=== PATIENT | male | born 1955 | race Caucasian/White ===

== ENCOUNTER 2018-06-10 09:34 | Inpatient (IN) | payer OTHER ==
--- NOTE | 2018-06-09 13:54 | PDGENHP ---
History & Physical Chief Complaint: Left knee prosthetic joint mechanical failure History of Present Illness: Rosendo is a pleasant 62 year old male who presented to our office with left knee pain s/p left TKA 17 years aog. He was found to have mechanical failure of the joint. He failed conservative treatment and has chosen to undergo surgical intervention Pertinent Past, Social, Family History: PMH: HTN. SH: LTKA 17 years ago. Medications: Lisinopril, mirtazipine, ritalin, albuterol, ibuprofen. FH: non- contributory. Social History: former smoker Relevant Physical Exam: Examination of the left knee demonstrates varus alignment. He has a moderate knee joint effusion. Mild laxity noted of the MCL. Full knee extension and 125 of knee flexion. There is retropatellar clicking with active knee extension. His strength is 4+ to 5 out of 5. He is neurovascular intact with intact skin. He has quad atrophy compared to the opposite side. Cardiorespiratory Assessment: RRR, CTAB
[~2018-06-10 09:34] MED LIST: BACITRACIN 50,000 UNITS/10 ML SYR IRR ONE; BUPIVACAINE/EPI 0.5% 30 ML SDV ONE; POLYMYXIN B SULFATE 500,000 UNIT/10 ML SYR IRR ONE; ROPIVACAINE 0.2% 80 MG, EPINEPHrine 0.2 MG, KETOROLAC TROMETHAMINE 30 MG, morphINE 10 M... IU ONE; TRANEXAMIC ACID 3,000 MG in NS (SYRINGE) 50 ML IRR ONE; TRANEXAMIC ACID 3,000 MG/50 ML BAG IRR ONE; ceFAZolin 2 GM/DEXTROSE 100 ML IV ONE
[2018-06-10] MEDS ORDERED: LR 1,000 ML IV ONE (09:51)
[2018-06-10] MEDS ORDERED: LIDOCAINE 1% 2 ML INJ ID PRN (09:51)
[2018-06-10] MEDS ORDERED: PROPOFOL/EMULSION 500 MG/50 ML BOTTLE IV ONE ×4 (11:17→15:52)
[2018-06-10] MEDS ORDERED: LIDOCAINE 2% 5 ML SDV ONE (11:19)
[2018-06-10] MEDS ORDERED: BUPIVACAINE/DEXTROSE 7.5MG/ML 2 ML SPINAL AMP SP ONE (11:20)
--- NOTE | 2018-06-10 11:25 | PDANEPAE ---
ANE History of Present Illness left knee revision arthroplasty ANE Past Medical History - Cardiovascular History Hx Hypertension: Yes Hx Arrhythmias: No Hx Chest Pain: No Hx Coronary Artery / Peripheral Vascular Disease: No Hx CHF / Valvular Disease: No Hx Palpitations: No Cardiovascular History Comment: RHEUMATIC FEVER AGE 1958 - Pulmonary History Hx COPD: No Hx Asthma/Reactive Airway Disease: Yes Hx Recent Upper Respiratory Infection: No Hx Oxygen in Use at Home: No Hx Sleep Apnea: No Sleep Apnea Screening Result - Last Documented: Positive Pulmonary History Comment: SPORTS INDUCED ASTHMA - Neurologic History Hx Cerebrovascular Accident: No Hx Seizures: No Hx Dementia: No - Endocrine History Hx Diabetes: No - Renal History Hx Renal Disorders: No - Liver History Hx Hepatic Disorders: No - Neurological & Psychiatric Hx Hx Neurological and Psychiatric Disorders: Yes Neurological / Psychiatric History Comment: ADD - Cancer History Hx Cancer: No - Congenital Disorder History Hx Congenital Disorders: No - GI History Hx Gastrointestinal Disorders: No - Other Health History Other Health History: TAKES IRON FOR PREVENTION - Chronic Pain History Chronic Pain: Yes (LT KNEE) - Surgical History Prior Surgeries: LT TOTAL KNEE 1999. RT KNEE SCOPE ANE Review of Systems Review of Systems: - Exercise capacity METS (RN): 5 METS ANE Patient History - Allergies Allergies/Adverse Reactions: No Known Allergies Allergy (Unverified 05/27/18 11:04) - Home Medications Home medications: home medication list seen and reviewed Home Medications: Albuterol [Proventil Inhaler HFA (*)] 1 - 2 puffs IH DAILY PRN 05/27/18 [Last Taken 06/07/18] Ferrous Sulfate [Ferrous Sulf 325 MG (*)] 325 mg PO HS 05/27/18 [Last Taken 07/19] Ibuprofen [Motrin (*)] 200 mg PO DAILY PRN 05/27/18 [Last Taken 06/09/18] Lisinopril [Zestril 20 mg (*)] 20 mg PO DAILY 05/27/18 [Last Taken 06/09/18] Melatonin [Melatonin 3 MG (*)] 3 mg PO HS PRN 05/27/18 [Last Taken 06/03/18] Methylphenidate HCl [Ritalin 20mg (*)] 20 mg PO TID 05/27/18 [Last Taken ] Mirtazapine [Remeron] 15 mg PO HS 05/27/18 [Last Taken 06/09/18] Multivitamins [Multivitamin (*)] 1 each PO DAILY 05/27/18 [Last Taken 06/08/18] - NPO status NPO Since - Liquids (Date): 06/10/18 NPO Since - Liquids (Time): 00:00 NPO Since - Solids (Date): 06/09/18 NPO Since - Solids (Time): 21:30 - Anes Hx Anes Hx: no prior problems - Smoking Hx Smoking Status: Former smoker ANE Labs/Vital Signs - Vital Signs Blood Pressure: 133/90 Heart Rate: 49 Respiratory Rate: 12 O2 Sat (%): 97 Height: 187.96 cm Weight: 102.965 kg ANE Physical Exam - Airway Neck exam: FROM Mallampati Score: Class 1 Mouth exam: normal dental/mouth exam - Pulmonary Pulmonary: no respiratory distress - Cardiovascular Cardiovascular: regular rate and rhythym - ASA Status ASA Status: II ANE Anesthesia Plan Anesthesia Plan: spinal Regional Anesthesia: single shot NB, adductor canal FNB
--- NOTE | 2018-06-10 11:46 | PDHPUP ---
History & Physical Update H&P update statement: This history and physical update is based on an assessment of the patient which was completed after admission or registration (within 24 hours), but prior to the surgery/procedure. H&P update: H&P reviewed & patient examined, no change in patient's condition since H&P completed
[2018-06-10] MEDS ORDERED: MIDAZOLAM 2 MG/2 ML VIAL IVP ONE (12:01)
[2018-06-10] MEDS ORDERED: ePHEDrine SULFATE 25 MG/5 ML SYR ONE (13:09)
--- NOTE | 2018-06-10 13:23 | POSTANESTH ---
Post Anesthetic Evaluation Cardiovascular Status: Normal, Stable Respiratory Status: Normal, Stable Level of Consciousness/Mental Status: Can Participate in Eval, Alert and Oriented Pain Control: Adequate, Prn Tx Ordered Nausea/Vomiting Control: Adequate, Prn Tx Ordered Complications Possibly Related to Anesthesia: None Noted
[2018-06-10] MEDS ORDERED: CALCIUM CHLORIDE 1 GM/10 ML INJ ONE (13:43)
[2018-06-10] MEDS ORDERED: THROMBIN (BOVINE) 5,000 UNIT VIAL TP ONE (13:43)
[2018-06-10] MEDS ORDERED: PROPOFOL 200 MG/20 ML VIAL ONE ×2 (14:27→14:49)
[2018-06-10] MEDS ORDERED: oxyCODONE IR 5 MG TAB PO PRN (16:08)
[2018-06-10] MEDS ORDERED: PROMETHAZINE HCL 25 MG/ML INJ IVP PRN ×2 (16:08→16:29)
[2018-06-10] MEDS ORDERED: LR 500 ML IV PRN (16:08)
[2018-06-10] MEDS ORDERED: fentaNYL 100 MCG/2 ML INJ IVP PRN (16:08)
[2018-06-10] MEDS ORDERED: HYDROmorphONE/DILAUDID 1 MG/ML INJ IVP PRN (16:08)
[2018-06-10] MEDS ORDERED: NALOXONE HCL 0.4 MG/ML INJ IVP PRN (16:08)
[2018-06-10] MEDS ORDERED: ALBUTEROL 3 ML DEYVIAL IH PRN (16:08)
[2018-06-10] MEDS ORDERED: HYDROCODONE/APAP 5/325 TAB PO PRN (16:08)
[2018-06-10] MEDS ORDERED: ONDANSETRON 4 MG/2 ML VIAL IVP PRN ×2 (16:08→16:29)
[2018-06-10] MEDS ORDERED: ACETAMINOPHEN 500 MG TAB PO PRN (16:08)
[2018-06-10] MEDS ORDERED: ALBUTEROL 60 PUFFS/8 GM MDI IH PRN (16:28)
[2018-06-10] MEDS ORDERED: MELATONIN 3 MG TAB PO PRN (16:28)
--- NOTE | 2018-06-10 16:28 | POSTOPPROG ---
Post Op Note Date of Operation: 06/10/18 Surgeon: Tonja Oliveira Clothing Cutter: coltrain Anesthesia: Epidural, IV Sedation Pre-op Diagnosis: r tkr failure Procedure: r tkr revision Inf/Abcess present in the surg proc area at time of surgery?: No Depth: Deep Incisional (Fascial) EBL: 100-500
[2018-06-10] MEDS ORDERED: diphenhydrAMINE 25 MG CAP PO PRN (16:29)
[2018-06-10] MEDS ORDERED: ONDANSETRON DISINTEGRATING 4 MG TAB PO PRN (16:29)
[2018-06-10] MEDS ORDERED: TAPENTADOL HCL 50 MG TAB PO PRN (16:29)
[2018-06-10] MEDS ORDERED: METOCLOPRAMIDE 10 MG/2 ML VIAL IVP PRN (16:29)
[2018-06-10] MEDS ORDERED: LACTULOSE 20 GM/30 ML UDCUP PO PRN (16:29)
[2018-06-10] MEDS ORDERED: TEMAZEPAM 15 MG CAP PO PRN (16:29)
[2018-06-10] MEDS ORDERED: BISACODYL 10 MG SUPP PR PRN (16:29)
[2018-06-10] MEDS ORDERED: PROMETHAZINE HCL 25 MG SUPPR PR PRN (16:29)
[2018-06-10] MEDS ORDERED: CYCLOBENZAPRINE 10 MG TAB PO PRN (16:29)
[2018-06-10] MEDS ORDERED: DIPHENOXYLATE/ATROPINE LOMOTIL 1 TAB PO PRN (16:29)
[2018-06-10] MEDS ORDERED: POLYETHYLENE GLYCOL 3350 17 GM PKT PO PRN (16:29)
[2018-06-10] MEDS ORDERED: MAGNESIUM HYDROXIDE 30 ML UDCUP PO PRN (16:29)
[2018-06-10] MEDS ORDERED: LR 1,000 ML IV SCH (16:30)
[2018-06-10] MEDS ORDERED: ROPIVACAINE HCL 150 MG/30 ML INJ ONE (16:30)
[2018-06-10] MEDS: KETOROLAC 15 MG/1 ML SDV IVP SCH ×2 (18:20→23:40)
[2018-06-10] MEDS: traMADol 50 MG TAB PO SCH ×2 (18:21→23:40)
[2018-06-10] MEDS: ceFAZolin 2 GM/DEXTROSE 100 ML IV SCH (19:58)
[2018-06-10] MEDS: TEARS/DEXTRAN 70/HYPROMELLOSE 15 ML OPHT.BTL RTEYE PRN (20:01)
[2018-06-10] MEDS ORDERED: MIRTAZAPINE 15 MG TAB PO SCH (21:00)
[2018-06-10] MEDS ORDERED: FERROUS SULFATE 325 MG TAB PO SCH (21:00)
[2018-06-10] MEDS: FAMOTIDINE 20 MG TAB PO SCH (21:08)
[2018-06-10] MEDS: SENNOSIDES/DOCUSATE SODIUM TAB PO SCH (21:10)
[2018-06-11] MEDS: ceFAZolin 2 GM/DEXTROSE 100 ML IV SCH (04:37)
[2018-06-11] MEDS: traMADol 50 MG TAB PO SCH ×2 (05:58→12:21)
[2018-06-11] MEDS: KETOROLAC 15 MG/1 ML SDV IVP SCH ×2 (05:58→12:20)
[2018-06-11] MEDS: TEARS/DEXTRAN 70/HYPROMELLOSE 15 ML OPHT.BTL RTEYE PRN (06:06)
[2018-06-11] MEDS: SENNOSIDES/DOCUSATE SODIUM TAB PO SCH (08:09)
[2018-06-11] MEDS: FAMOTIDINE 20 MG TAB PO SCH (08:10)
[2018-06-11] MEDS ORDERED: LISINOPRIL 20 MG TAB PO SCH (09:00)
[2018-06-11] MEDS ORDERED: RIVAROXABAN 10 MG TAB PO SCH (09:00)
--- NOTE | 2018-06-11 09:17 | GOP ---
[f rep st] OPERATIVE REPORT DATE OF OPERATION: 06/10/2018 SURGEON: Tonja Oliveira MD FACILITY ENGINEER: LARA CorralesA, LSA., whose presence was medically necessary. ANESTHESIA: By epidural plus IV sedation. PREOPERATIVE DIAGNOSIS: Left total knee replacement failure. POSTOPERATIVE DIAGNOSIS: Left total knee replacement failure. PROCEDURE PERFORMED: Left total knee replacement revision. Extensive synovectomy. FINDINGS: INDICATIONS: This is a 62-year-old male, who had previously undergone a left total knee arthroplasty which had done well for several years. Started to have pain within the left knee as well as swellin g. X-ray exam has revealed subsidence of the polyethylene component into the tibia as well as cystic changes noted on x-ray. He wishes to have surgery in order to resolve the problem. DESCRIPTION OF PROCEDURE: Patient was brought to the operating room after the left side had been abebe ntified as the correct side by the patient, nurse, physician. Once in the operating room he was give n an epidural nerve block and was placed supine on the operating room table. Given IV sedation. A t ourniquet was placed around the upper portion of the left thigh with the left lower extremity then st erilely prepped and draped in the usual fashion using a CESAR/solution. Once prepped and draped, limb was exsanguinated, tourniquet inflated to 250 mmHg. Using his old scar, the anterior incision was ma de on the anterior portion of the knee, with sharp dissection carried down through the skin and subcu taneous layers with bleeding controlled using electrocautery. A medial parapatellar incision was mad e through the extensor mechanism, with the patella brought to the side, but not everted. Once inside he had an abundant amount of synovium that was irritated and inflamed. Appeared to be secondary to polyethylene wear. He had extensive synovectomy done to remove this tissue. Bleeding was again cont rolled using electrocautery. Attention was then turned to the tibial component. The abundant amount of scar tissue had to be free d up in order to gain access to the full portion of the tibial component. Once it was able to be sub luxed anteriorly, the oscillating saw was used to cut across the tibial post in order to remove the h orizontal portion of the polyethylene component and then the vertical component was able to be more e asily removed. The cement associated with the component had to be removed using combination of ronge ur, osteotome, and ultrasonic knife. The abundant amount of soft tissue within the area in order to be removed from the cystic areas of the proximal tibia was able to be removed. Broaches were then pl aced within the femoral canal leading to a 115 x 12 stem being able to be placed within the tibia. O nce in place, a cone reamer was passed over the broach in the tibial canal up to a size D which was n oted to fit securely. A trial D cone was then put into place and noted to fit securely, and a size 4 tibia which seemed to cover the proximal surface of the tibia well was attached onto 115 x 12 mm tri al stem, put into place to ensure an adequate fit onto the proximal tibia. Once this was ensured, th e size D cone from [employer] was put into place and noted to fit securely. Cement was then placed on t he proximal tibia and on the inner portion of the D cone with a size 4 tibial component from [employer] at tached to 115 x 12 mm stem passed into the proximal tibia. A trial liner was placed within the polye thylene tray and the knee was brought to full extension over pressurized cement. Once cement had maría dened, multiple trials were placed within the tibial tray and noted a size 4 polyethylene with 12.5 m m height seemed to fit best. Therefore, a size 4, 12.5 mm polyethylene component was put into place. The knee was able to be reduced. Joint cocktail was injected in the posterior capsule as well as p eriosteum of the femur and tibia and the extensor mechanism. Tranexamic acid was irrigated through t he wound. The tourniquet was released at 123 minutes. The wound was then closed in layers to includ e 0 Vicryl suture for the extensor mechanism, 0 Vicryl and 2-0 Vicryl suture for the subcutaneous lay ers, and a 3-0 V-Loc suture in a running subcuticular stitch for the skin. 30 cc of Marcaine was inf used around the actual incision itself. The wound was then dressed with Steri-Strips, Xeroform, 4 x 4's, and Kerlix. The leg was completely undraped in the operating room, tourniquet removed from the thigh, and an Douglas wrap placed around the knee. The patient was then woken up, transferred onto a [facility] etcher, and sent to recovery room in good condition. TOURNIQUET TIME: 123 minutes. /[id number]/MODL
--- NOTE | 2018-06-11 10:21 | SOAPPROG ---
SOAP Progress Note Assessment/Plan: Assessment:Pt is POD#1 s/p left knee revision arthroplasty. He is doing very well with mild pain. He has been working with PT who states he is cleared to go home. PE: Dressing is clean and dry SLR intact Calf is soft to compression without pain NV intact LLE Plan:Plan for discharge home today 06/11/18 10:20 06/20/18 08:10 Objective: Vital Signs Temp Pulse Resp BP Pulse Ox 36.7 C 73 16 134/76 H 93 06/11/18 08:00 06/11/18 08:00 06/11/18 08:00 06/11/18 08:00 06/11/18 08:00 Laboratory Results 06/11/18 04:43 06/10/18 06/11/18 06/12/18 05:59 05:59 05:59 Intake Total 1800 500 Output Total 650 Balance 1150 500 ICD10 Worksheet Patient Problems: Problems Problem Status Onset Osteoarthritis of left knee Acute - ICD10 Problem Qualifiers (1) Osteoarthritis of left knee
[2018-06-11 11:39] VITALS: BP 134/78
--- NOTE | 2018-06-11 13:00 | PDMN ---
Medical Necessity Medical necessity: S700 knee arthroplasty: L TKA- revision INPT only [id number]
--- NOTE | 2018-06-11 14:57 | ASMTCMCOM ---
CM Note CM Note Notes: Pt medically stable for d/c, no CM d/c needs identified. Date Signed: 06/11/2018 02:56 PM Electronically Signed By:NELIA Arzola
--- NOTE | 2018-07-09 12:05 | GDS ---
[f rep st] DISCHARGE SUMMARY CURRENT COMPLAINTS: Left knee pain. HISTORY OF PRESENT ILLNESS: This is a 62-year-old male, previously undergone a left total knee arthr oplasty. He has done well for several years. Began to have pain in the left knee. X-ray exam revea led subsidence of the polyethylene component on the tibia as well as cystic changes on the x-ray. Wi shed to have surgery in order to resolve the problem. HOSPITAL COURSE: Patient brought to the operating room on the date of admission, where he underwent a left total knee replacement revision with an extensive synovectomy. Postoperatively, he did well w ith physical therapy and pain control to the point that he was able to be discharged the following da y on 06/11/2018, with instructions to continue with his physical therapy regimen and follow up in the office for further evaluation. DISCHARGE DIAGNOSIS: He was given the discharge diagnosis of left total knee replacement failure. /[id number]/MODL
== END 2018-06-11 13:01 | disposition home or self-care (01) | DRG 468 ==
LOC: OBSVTOIN 09:34 → F3N 09:34 → EDSTATUS 11:00 → F3N 17:35
PROVIDERS: ADMIT Orthopaedic Surgery; ATTEND Orthopaedic Surgery
PROC: 0SPD0JZ Removal of Synthetic Substitute from Left Knee Joint, Open Approach (ICD-10-PCS; principal; 2018-06-10 11:00)
PROC: 6A550Z2 Pheresis of Platelets, Single (ICD-10-PCS; principal; 2018-06-10 11:00)
PROC: 3E0U3GC Introduction of Other Therapeutic Substance into Joints, Percutaneous Approach (ICD-10-PCS; principal; 2018-06-10 11:00)
PROC: 0SRD0J9 Replacement of Left Knee Joint with Synthetic Substitute, Cemented, Open Approach (ICD-10-PCS; principal; 2018-06-10 11:00)
DX: T84.063A Wear of articular bearing surface of internal prosthetic left knee joint, initial encounter (principal); Z96.652 Presence of left artificial knee joint; I10 Essential (primary) hypertension; Z87.891 Personal history of nicotine dependence
CPT/HCPCS: 97116-GP; 97161-GP; 97165-GO; 97535-GO; C1713; J0171; J0690; J1885; J2250; J2270; J2704; J2795